=== PATIENT | female | born 1940 | race Caucasian/White ===

== ENCOUNTER 2016-07-24 00:29 | Inpatient (IN) | payer OTHER ==
[~2016-07-24] VITALS: Ht 162.6 cm; Wt 109.4 kg
[2016-07-24 03:21] LABS: HEMOGLOBIN 11.7 gm/dl (12.3-15.3); RED BLOOD COUNT 3.86 M/UL (4.00-5.10)
[2016-07-24] MEDS ORDERED: LIPITOR TAB 1010 MG PO (12:00)
[2016-07-24] MEDS ORDERED: NEURONTIN 400400 MG PO (12:01)
[2016-07-24] MEDS ORDERED: TYLENOL W/CODEIN1 E1 PO (12:01)
[2016-07-24] MEDS ORDERED: ELIQUIS2.5 MG PO (12:01)
[2016-07-24] MEDS ORDERED: CARTIA XT180 MG PO (12:02)
[2016-07-24] MEDS ORDERED: ALDACTONE25 MG PO (12:02)
[2016-07-24] MEDS ORDERED: REGLAN10 MG PO (12:03)
[2016-07-24] MEDS ORDERED: METOLAZONE5 MG PO (12:04)
[2016-07-24] MEDS ORDERED: COREG 25MG TAB25 MG PO (12:05)
[2016-07-24] MEDS ORDERED: SYMBICORT 80-10.2 GM INH (12:05)
[2016-07-24] MEDS ORDERED: LEVOCETIRIZINE D5 MG PO (12:06)
[2016-07-24] MEDS ORDERED: IMDUR ER TAB 3030 MG PO (12:07)
[2016-07-24] MEDS ORDERED: K-TAB ER20 MEQ PO (12:07)
[2016-07-24] MEDS ORDERED: FLONASE ALLER15.8 ML (12:08)
[2016-07-24] MEDS ORDERED: METFORMIN HCL1000 MG PO (12:08)
[2016-07-24] MEDS ORDERED: ZYLOPRIM 100 M100 MG PO (12:10)
[2016-07-24] MEDS ORDERED: NITROSTAT0.4 MG SL (12:10)
[2016-07-24] MEDS ORDERED: SINGULAIR10 MG PO (12:13)
[2016-07-24] MEDS ORDERED: ZANTAC150 MG PO (12:14)
[2016-07-24] MEDS ORDERED: COLACE 100MG C100 MG PO (12:14)
[2016-07-25 04:48] LABS: HEMOGLOBIN 11.7 gm/dl (12.3-15.3); RED BLOOD COUNT 3.89 M/UL (4.00-5.10); WHITE BLOOD COUNT 11.4 K/UL (4.5-11.0)
[2016-07-26 06:36] LABS: RED BLOOD COUNT 3.63 M/UL (4.00-5.10); WHITE BLOOD COUNT 10.1 K/UL (4.5-11.0)
[2016-08-01 06:06] LABS: HEMOGLOBIN 11.3 gm/dl (12.3-15.3); RED BLOOD COUNT 3.79 M/UL (4.00-5.10); WHITE BLOOD COUNT 9.1 K/UL (4.5-11.0)
[2016-08-01 06:38] LABS: BUN/CREATININE RATIO 26 (0-10)
== END 2016-08-03 14:55 | disposition home or self-care (01) | DRG 190 ==
LOC: ER1 00:29 → MED SURG 4 07:13 → ZEROF 07:13 → PROG CARE 07:13 → MED SURG 4 07-25 17:40
PROVIDERS: Emergency Medicine; Family Medicine; Internal Medicine Infectious Disease; ADMIT Hospitalist
DX: J44.0 Chronic obstructive pulmonary disease with (acute) lower respiratory infection (principal); J96.21 Acute and chronic respiratory failure with hypoxia; I50.33 Acute on chronic diastolic (congestive) heart failure; I13.0 Hypertensive heart and chronic kidney disease with heart failure and stage 1 through stage 4 chronic kidney disease, or unspecified chronic kidney disease; N17.9 Acute kidney failure, unspecified; G25.9 Extrapyramidal and movement disorder, unspecified; Z68.41 Body mass index [BMI] 40.0-44.9, adult; R00.1 Bradycardia, unspecified; J44.1 Chronic obstructive pulmonary disease with (acute) exacerbation; N18.3 Chronic kidney disease, stage 3 (moderate); E11.22 Type 2 diabetes mellitus with diabetic chronic kidney disease; J20.9 Acute bronchitis, unspecified; I48.0 Paroxysmal atrial fibrillation; T45.0X5A Adverse effect of antiallergic and antiemetic drugs, initial encounter; G47.33 Obstructive sleep apnea (adult) (pediatric); M10.9 Gout, unspecified; R53.81 Other malaise; I25.10 Atherosclerotic heart disease of native coronary artery without angina pectoris; K21.9 Gastro-esophageal reflux disease without esophagitis; E78.5 Hyperlipidemia, unspecified; Z90.49 Acquired absence of other specified parts of digestive tract; Z90.710 Acquired absence of both cervix and uterus; Z88.0 Allergy status to penicillin; Z88.8 Allergy status to other drugs, medicaments and biological substances; Z79.82 Long term (current) use of aspirin; Z79.01 Long term (current) use of anticoagulants; Z79.84 Long term (current) use of oral hypoglycemic drugs; Z79.899 Other long term (current) drug therapy; Z87.891 Personal history of nicotine dependence; Z82.49 Family history of ischemic heart disease and other diseases of the circulatory system; D72.829 Elevated white blood cell count, unspecified; E11.21 Type 2 diabetes mellitus with diabetic nephropathy; E66.01 Morbid (severe) obesity due to excess calories; E87.6 Hypokalemia; E83.42 Hypomagnesemia; E11.65 Type 2 diabetes mellitus with hyperglycemia
CPT/HCPCS: 36415; 36600; 51701; 70450; 70551; 71010; 80048; 80053; 81001; 82550; 82553; 82803; 82962; 83735; 83874; 83880; 84132; 84484; 85025; 85027; 87086; 93005; 94640; 94664; 96374; 96375; 97110; 97116; 97530; 99291; J1940; J1956

== ENCOUNTER → 2016-09-07 | Outpatient (CLI) | payer OTHER ==
[~2016-09-07] MED LIST: ALDACTONE25 MG PO; CARTIA XT180 MG PO; COLACE 100MG C100 MG PO; COREG 25MG TAB25 MG PO; ELIQUIS2.5 MG PO; FLONASE ALLER15.8 ML; IMDUR ER TAB 3030 MG PO; K-TAB ER20 MEQ PO; LEVOCETIRIZINE D5 MG PO; LIPITOR TAB 1010 MG PO; METFORMIN HCL1000 MG PO; METOLAZONE5 MG PO; NEURONTIN 400400 MG PO; NITROSTAT0.4 MG SL; REGLAN10 MG PO; SINGULAIR10 MG PO; SYMBICORT 80-10.2 GM INH; TYLENOL W/CODEIN1 E1 PO; ZANTAC150 MG PO; ZYLOPRIM 100 M100 MG PO
== END ==
LOC: EMI 09-01 10:00
DX: M54.5 Low back pain (principal); M54.16 Radiculopathy, lumbar region; M43.16 Spondylolisthesis, lumbar region; M47.896 Other spondylosis, lumbar region
CPT/HCPCS: 72148